=== PATIENT | female | born 1930 | race Hispanic/Latino ===

== ENCOUNTER 2018-10-14 17:33 | Inpatient (IN) | payer MEDICARE, OTHER ==
[~2018-10-14] VITALS: Ht 162.6 cm; Wt 41.1 kg
[2018-10-14 18:21] LABS: BASOPHILS % (AUTO) 0.2 % (0.0-5.0); EOSINOPHILS % (AUTO) 0.3 % (0.0-8.0); HEMATOCRIT 42.6 % (36-48); LYMPHOCYTES % (AUTO) 4.9 % (21.0-51.0); MEAN CORPUSCULAR HEMOGLOBIN 31.2 pg (27.0-33.0); MEAN CORPUSCULAR HGB CONC 32.7 g/dL (32.0-36.0); MEAN CORPUSCULAR VOLUME 95.5 fL (79-99); NEUTROPHILS % (AUTO) 87.6 % (40.0-77.0); PLATELET COUNT (AUTO) 175 K/uL (130-400); RED BLOOD CELL COUNT(AUTO) 4.47 MIL/uL (4.00-5.50); RED CELL DISTRIBUTION WIDTH 13.5 % (11.0-15.5); WHITE BLOOD COUNT (AUTO) 15.9 K/uL (4.8-10.8)
[2018-10-14 18:29] LABS: CREATININE 0.6 mg/dL (0.5-1.5); POTASSIUM 3.9 mmol/L (3.5-5.1)
[2018-10-14 18:34] LABS: ALBUMIN 3.1 g/dL (3.5-5.0); BILIRUBIN,TOTAL 0.9 mg/dL (0.2-1.0); TOTAL PROTEIN, SERUM 7.2 g/dL (6.0-8.3)
[2018-10-14 19:05] LABS: APPEARANCE,URINE CLOUDY (CLEAR); BILIRUBIN,URINE NEGATIVE (NEGATIVE); COLOR,URINE YELLOW (YELLOW); GLUCOSE, URINE (UA) NEGATIVE (NEGATIVE); KETONES,URINE 40 mg/dL (NEGATIVE); LEUKOCYTE ESTERASE ,URINE NEGATIVE (NEGATIVE); NITRATE,URINE NEGATIVE (NEGATIVE); OCCULT BLOOD,URINE SMALL (NEGATIVE); PROTEIN,URINE 100 (NEGATIVE)
[2018-10-14 19:16] LABS: BACTERIA,URINE Moderate /HPF (None Seen); RBC,URINE 0-1 /HPF (0-1); SQUAMOUS EPITHELIAL CELL,UR Few /HPF (0-2)
[2018-10-14] MEDS ORDERED: ASPIRIN 325 MG TABLET ONE (19:56)
[2018-10-14] MEDS ORDERED: ONDANSETRON HCL 4 MG/2 ML VIAL IV PRN (20:00)
[2018-10-14] MEDS ORDERED: ACETAMINOPHEN 325 MG TAB PO PRN (20:00)
[2018-10-14] MEDS ORDERED: MORPHINE SULFATE 4 MG/1ML SYG IV PRN (20:00)
[2018-10-14] MEDS ORDERED: NITROGLYCERIN 0.4 MG SL TAB SL PRN (20:00)
[2018-10-14] MEDS: ATORVASTATIN CALCIUM 40 MG TABLET PO SCH (21:00)
[2018-10-14] MEDS: METOPROLOL TARTRATE 25 MG TAB PO SCH (21:00)
[2018-10-14] MEDS: FAMOTIDINE/PF 20 MG/2 ML VIAL IV SCH (21:00)
[2018-10-14] MEDS ORDERED: ATORVASTATIN CALCIUM 20 MG TABLET ONE (21:32)
[2018-10-14] MEDS ORDERED: METOPROLOL TARTRATE 25 MG TAB ONE (21:33)
[2018-10-14] MEDS ORDERED: FAMOTIDINE 20MG TAB 20 MG TAB ONE (21:33)
[2018-10-14 22:00] VITALS: BP 152/64
[2018-10-15] VITALS (7 sets, daily range): BP systolic 116–137; BP diastolic 47–73
[2018-10-15] MEDS ORDERED: GLUCAGON 1MG KIT 1 MG ML IM PRN (05:15)
[2018-10-15] MEDS ORDERED: DEXTROSE 50%-WATER 50 ML DISP.SYRIN IV PRN (05:15)
[2018-10-15] MEDS: INSULIN HUMULIN R 100 UNIT/ML 3ML SQ SCH ×4 (06:22→20:34)
[2018-10-15] MEDS: METOPROLOL TARTRATE 25 MG TAB PO SCH ×2 (09:00→20:39)
[2018-10-15] MEDS ORDERED: ASPIRIN 325 MG TABLET PO SCH (09:00)
[2018-10-15] MEDS: FAMOTIDINE/PF 20 MG/2 ML VIAL IV SCH ×2 (10:02→20:39)
[2018-10-15 10:37] LABS: TROPONIN I 0.1 ng/mL (0.00-0.06)
--- NOTE | 2018-10-15 10:48 | NUR ---
CARDIAC PANEL RESULT MD made aware of cardiac panel results before leaving the floor.
--- NOTE | 2018-10-15 11:52 | NUR ---
[facility] CM met with pt unable to answer questions appropriately, called daughter Norma Calhoun [phone], no answer, left voicemail, pending to call back. Obtained info through med records. Pt is semi-ind, lives at home w/daughter, uses cane. Will reasses once family available. Dc plan to home vs SNF. CM to cont to follow up Addendum: 10/15/18 at 1153 by LYNDSEY SUNSHINE LVN CM Amended: Links added.
[2018-10-15] MEDS: CEFTRIAXONE SODIUM 1 GM IVP SCH (12:39)
[2018-10-15] MEDS: SODIUM CHLORIDE 0.9% 1000ML 1,000 ML IV SCH ×2 (17:36→22:09)
--- NOTE | 2018-10-15 17:36 | NUR ---
Nutrition intervention: Nutrition notification for poor appetite, weight loss and weakness. Pt with difficulty chewing meats, recommend finely chopped textures. Unintentional weight loss in the past 6 months, recommend nutrition supplementation TID. JOSELYN spoke with pt's sister at bedside. LBM 10/15. BMI 15.5. Alb 3.1. Addendum: 10/15/18 at [address] Amended: Links added.
[2018-10-15] MEDS: ATORVASTATIN CALCIUM 40 MG TABLET PO SCH ×2 (20:39→21:00)
[2018-10-16] VITALS (7 sets, daily range): BP systolic 127–139; BP diastolic 59–97
[2018-10-16] MEDS: CEFTRIAXONE SODIUM 1 GM IVP SCH (00:01)
[2018-10-16] MEDS ORDERED: LORAZEPAM 2 MG/ML 1 ML VIAL IVP PRN (00:15)
[2018-10-16] MEDS ORDERED: LORAZEPAM 2 MG/ML 1 ML VIAL ONE (00:16)
[2018-10-16] MEDS: SODIUM CHLORIDE 0.9% 1000ML 1,000 ML IV SCH (06:21)
[2018-10-16] MEDS: INSULIN HUMULIN R 100 UNIT/ML 3ML SQ SCH ×4 (06:38→20:08)
[2018-10-16 08:25] LABS: HEMATOCRIT 34.2 % (36-48); MEAN CORPUSCULAR HEMOGLOBIN 32.8 pg (27.0-33.0); MEAN CORPUSCULAR HGB CONC 34.5 g/dL (32.0-36.0); PLATELET COUNT (AUTO) 158 K/uL (130-400); RED CELL DISTRIBUTION WIDTH 13.6 % (11.0-15.5); WHITE BLOOD COUNT (AUTO) 10.2 K/uL (4.8-10.8)
[2018-10-16 08:40] LABS: CREATININE 0.5 mg/dL (0.5-1.5); HEMOGLOBIN A1C 6.8 % (4.0-6.0); MAGNESIUM 1.5 mg/dL (1.80-2.40); PHOSPHORUS 2.5 mg/dL (2.5-4.9); POTASSIUM 3.3 mmol/L (3.5-5.1)
[2018-10-16] MEDS: MEGESTROL 400 MG/10 ML UDCUP PO SCH (10:31)
[2018-10-16] MEDS: FAMOTIDINE/PF 20 MG/2 ML VIAL IV SCH ×2 (10:31→20:30)
[2018-10-16] MEDS: METOPROLOL TARTRATE 25 MG TAB PO SCH ×2 (10:31→20:30)
[2018-10-16] MEDS: ASPIRIN 81MG TAB.CHEW PO SCH (10:31)
[2018-10-16] MEDS: LINAGLIPTIN 5 MG TABLET PO SCH (10:31)
--- NOTE | 2018-10-16 16:03 | NUR ---
CM Note: [facility] pending acceptance CM met with pt and family, sister at bedside, daughter on the phone. Discussed regarding MD recommendation for temp placement rehab, sister and daughter agreeable, LAZARO signed for [facility]. Faxed order, clinicals, and pasrr. Spoke to Tiesha richards/[facility], will come eval pt, aware pending PT eval and treat, will fax notes as soon as available. Pt pending acceptance, will need to complete 3MN, ok to transfer tomorrow 10/17 once accepted, EMS form filled out pending to be faxed once pt ready. Primary nurse aware. CM to cont to follow up.
--- NOTE | 2018-10-16 16:51 | NUR ---
Nutrition Follow-up: Pt. on 60gm CCD Finely Chopped diet with Glucerna supp. TID. As per pt's son, pt. requested food around 12am-1am; states pt. ate well at this time. Pt's son states pt. was still feeling full when b'fast tray arrived due to having eaten earlier so pt. did not eat b'fast meal. Pt. with 25% p.o. intake of lunch, per EMR. As per pt's son, pt. drinking 50% of Glucerna supp. Pt's son requesting Apple juice with every meal for pt. due to pt. tolerates the juice well. Pt. on medication Megace for appetite. Labs reviewed(Alb 3.1). LBM: 10/15/18. SR-alvaro Caal. Recommendations: 1) Continue current diet and Glucerna supp. 2) Continue to monitor pt's nutritional status. 3) RD to follow-up in 3-5 days. Addendum: 10/16/18 at [address] Amended: Links added.
--- NOTE | 2018-10-16 19:17 | NUR ---
URINARY SAMPLE Two different nurses attempted two times to insert straight catheter to obtain urine sample unsuccessfully. Patient does not cooperate in the sense that she moves her arms, tenses her legs, refuses to open her perineal area, refuses to flex her legs at the knees and spread her legs. When patient is relaxed, her urethra is very easily visualized, but when she starts having her inner vulvar area cleaned, she tenses up this area of her body and obstructs visualization and reach of urethra. Urine sample for culture still pending.
[2018-10-16] MEDS: ATORVASTATIN CALCIUM 10 MG TABLET PO SCH (20:30)
--- NOTE | 2018-10-16 23:21 | NUR ---
Try to collect urine by straight cath. CECILIO Aguillon assist in the procedure. Patient urinate during the insertion, unable to collect in the collection container. Patient daughter in the room during the procedure and aware urine collection pending.
[2018-10-17] MEDS ORDERED: CEFTRIAXONE SODIUM 1 GM IVP SCH (00:15)
[2018-10-17] MEDS ORDERED: HYDR12.530 PO (02:00)
[2018-10-17] MEDS ORDERED: KETO.5OS OD (02:00)
[2018-10-17] MEDS ORDERED: LOVA10TA2 PO (02:00)
[2018-10-17] MEDS ORDERED: METF-444 PO (02:00)
[2018-10-17] MEDS ORDERED: ASPI-1197 PO (02:00)
[2018-10-17] MEDS ORDERED: MULT-1296 PO (02:00)
[2018-10-17] MEDS ORDERED: AMLO10TA7 PO (02:00)
[2018-10-17] MEDS ORDERED: LOSA100T58 PO (02:00)
[2018-10-17] MEDS ORDERED: CALC600T12 PO (02:00)
[2018-10-17] MEDS ORDERED: ALEN70TA10 PO (02:00)
[2018-10-17 03:26] VITALS: BP 111/52
[2018-10-17 04:44] LABS: MEAN CORPUSCULAR HEMOGLOBIN 31.7 pg (27.0-33.0); MEAN CORPUSCULAR HGB CONC 33.8 g/dL (32.0-36.0); MEAN CORPUSCULAR VOLUME 93.7 fL (79-99); NUCLEATED RED BLOOD CELLS 0.1 % (0.0-0.19); PLATELET COUNT (AUTO) 156 K/uL (130-400); RED BLOOD CELL COUNT(AUTO) 3.84 MIL/uL (4.00-5.50); RED CELL DISTRIBUTION WIDTH 13.7 % (11.0-15.5)
[2018-10-17 04:58] LABS: ALBUMIN 2.5 g/dL (3.5-5.0); BILIRUBIN,TOTAL 0.6 mg/dL (0.2-1.0); CREATININE 0.5 mg/dL (0.5-1.5); POTASSIUM 3.1 mmol/L (3.5-5.1); TOTAL PROTEIN, SERUM 5.8 g/dL (6.0-8.3)
[2018-10-17] MEDS: INSULIN HUMULIN R 100 UNIT/ML 3ML SQ SCH ×4 (06:12→21:15)
[2018-10-17 07:24] VITALS: BP_SYST 120; BP_SYST 134; BP_DIAS 70; BP_DIAS 76
[2018-10-17] MEDS: ASPIRIN 81MG TAB.CHEW PO SCH (11:40)
[2018-10-17] MEDS: LINAGLIPTIN 5 MG TABLET PO SCH (11:40)
[2018-10-17] MEDS: METOPROLOL TARTRATE 25 MG TAB PO SCH ×2 (11:40→21:14)
[2018-10-17] MEDS: MEGESTROL 400 MG/10 ML UDCUP PO SCH (11:40)
--- NOTE | 2018-10-17 11:45 | NUR ---
[facility]: Spoke susie Motley, she mentions that pt has been accepted to their facility for services and room is ready for her today. Primary nurse informed. Dr. Yee informed, states will most likely discharge pt tomorrow.
[2018-10-17 12:23] VITALS: BP 126/56
[2018-10-17] MEDS: NS-20 MEQ KCL 1000ML 1,000 ML IV SCH (13:10)
[2018-10-17] MEDS: POTASSIUM CHLORIDE 10% ELIXIR 20 MEQ/15 ML UDCUP PO SCH (13:11)
--- NOTE | 2018-10-17 13:32 | NUR ---
LETHARGY Patient received in a relaxe dstate this morning. NO agitation. No moving in bed. She advanced to lethargy. Nurse Practitioner started her on NS with 20mEq KCl at 50mL/hr, which was started and she is a lot more alert now. Also, all ehr medications that can cause lethargy were stopped by EDITOR PRODUCER. Patient also had replacement of potassium 3.1; had 40mEq of PO KCl elixir. Able to open her eyes on command, swallow on command and she also had a good appetite. She falls back to sleep but is easily arousable and seemed engaged with her environment and surroundings. Continues receiving IVFs as ordered.
[2018-10-17 15:40] VITALS: BP 114/63
[2018-10-17 19:15] VITALS: BP 106/50
[2018-10-17] MEDS: FAMOTIDINE 20MG TAB 20 MG TAB PO SCH (21:14)
[2018-10-17] MEDS: ATORVASTATIN CALCIUM 10 MG TABLET PO SCH (21:14)
[2018-10-17 23:00] VITALS: BP 113/57
[2018-10-18 03:00] VITALS: BP 117/59
[2018-10-18] MEDS: NS-20 MEQ KCL 1000ML 1,000 ML IV SCH (04:29)
[2018-10-18] MEDS: INSULIN HUMULIN R 100 UNIT/ML 3ML SQ SCH ×4 (06:22→22:01)
[2018-10-18 06:32] LABS: HEMATOCRIT 32.6 % (36-48); MEAN CORPUSCULAR HEMOGLOBIN 32.5 pg (27.0-33.0); MEAN CORPUSCULAR HGB CONC 34.1 g/dL (32.0-36.0); MEAN CORPUSCULAR VOLUME 95.2 fL (79-99); PLATELET COUNT (AUTO) 161 K/uL (130-400); RED BLOOD CELL COUNT(AUTO) 3.42 MIL/uL (4.00-5.50); RED CELL DISTRIBUTION WIDTH 13.9 % (11.0-15.5); WHITE BLOOD COUNT (AUTO) 15.4 K/uL (4.8-10.8)
[2018-10-18 06:49] LABS: CREATININE 0.5 mg/dL (0.5-1.5); POTASSIUM 4.2 mmol/L (3.5-5.1)
[2018-10-18 08:00] VITALS: BP 123/63
[2018-10-18] MEDS ORDERED: LEVOFLOXACIN 500 MG TABLET PO SCH (09:00)
[2018-10-18] MEDS ORDERED: CEFTRIAXONE SODIUM 500 MG VIAL IV SCH (09:00)
[2018-10-18] MEDS: MEROPENEM 500 MG VIAL IVP SCH ×2 (11:18→21:59)
[2018-10-18] MEDS: FAMOTIDINE 20MG TAB 20 MG TAB PO SCH ×3 (11:19→21:59)
[2018-10-18] MEDS: METOPROLOL TARTRATE 25 MG TAB PO SCH ×3 (11:19→21:59)
[2018-10-18] MEDS: ASPIRIN 81MG TAB.CHEW PO SCH (11:19)
[2018-10-18] MEDS: LINAGLIPTIN 5 MG TABLET PO SCH (11:19)
[2018-10-18] MEDS: MEGESTROL 400 MG/10 ML UDCUP PO SCH (11:19)
[2018-10-18] MEDS: POTASSIUM CHLORIDE 10% ELIXIR 20 MEQ/15 ML UDCUP PO SCH (12:00)
[2018-10-18 12:50] VITALS: BP 143/71
[2018-10-18 16:00] VITALS: BP 120/56
[2018-10-18 19:00] VITALS: BP 119/46
[2018-10-18] MEDS: ATORVASTATIN CALCIUM 10 MG TABLET PO SCH ×2 (21:00→21:59)
[2018-10-18 23:25] VITALS: BP 146/51
[2018-10-19 03:15] VITALS: BP 136/70
[2018-10-19 06:50] LABS: HEMATOCRIT 33.6 % (36-48); MEAN CORPUSCULAR HEMOGLOBIN 31.5 pg (27.0-33.0); MEAN CORPUSCULAR HGB CONC 33.5 g/dL (32.0-36.0); MEAN CORPUSCULAR VOLUME 94.1 fL (79-99); PLATELET COUNT (AUTO) 158 K/uL (130-400); RED BLOOD CELL COUNT(AUTO) 3.57 MIL/uL (4.00-5.50); RED CELL DISTRIBUTION WIDTH 13.9 % (11.0-15.5); WHITE BLOOD COUNT (AUTO) 19.4 K/uL (4.8-10.8)
[2018-10-19 07:30] VITALS: BP 132/68
[2018-10-19 10:09] LABS: CREATININE 0.5 mg/dL (0.5-1.5)
[2018-10-19] MEDS: FAMOTIDINE 20MG TAB 20 MG TAB PO SCH ×2 (10:19→22:58)
[2018-10-19] MEDS: LINAGLIPTIN 5 MG TABLET PO SCH (10:19)
[2018-10-19] MEDS: METOPROLOL TARTRATE 25 MG TAB PO SCH ×2 (10:19→22:59)
[2018-10-19] MEDS: ASPIRIN 81MG TAB.CHEW PO SCH (10:19)
[2018-10-19] MEDS: MEROPENEM 500 MG VIAL IVP SCH ×2 (10:20→22:59)
[2018-10-19 12:00] VITALS: BP 129/63
[2018-10-19] MEDS: POTASSIUM CHLORIDE 10% ELIXIR 20 MEQ/15 ML UDCUP PO SCH (12:00)
[2018-10-19] MEDS: INSULIN HUMULIN R 100 UNIT/ML 3ML SQ SCH ×3 (12:54→21:00)
[2018-10-19] MEDS ORDERED: VANCOMYCIN PROTOCOL PER PHARMACY IV SCH (15:45)
[2018-10-19 16:00] VITALS: BP 112/49
[2018-10-19] MEDS ORDERED: COMPOUND IV REFRIGERATED 1 EACH IVSOLN MISC PRN (16:00)
--- NOTE | 2018-10-19 17:00 | NUR ---
REFUSE TO HAVE HER SUGAR CHECK FOR NOW
[2018-10-19 19:00] VITALS: BP 134/64
[2018-10-19] MEDS: VANCOMYCIN 750MG + NS 250 ML IV SCH ×2 (22:58)
[2018-10-19] MEDS: OSELTAMIVIR PHOSPHATE 75 MG CAP PO SCH (22:58)
[2018-10-19] MEDS: ATORVASTATIN CALCIUM 10 MG TABLET PO SCH (22:58)
[2018-10-19 23:00] VITALS: BP 130/54
[2018-10-20 03:00] VITALS: BP 124/56
[2018-10-20 05:39] LABS: BASOPHILS % (AUTO) 0.2 % (0.0-5.0); EOSINOPHILS % (AUTO) 0.4 % (0.0-8.0); HEMATOCRIT 34.6 % (36-48); LYMPHOCYTES % (AUTO) 7.6 % (21.0-51.0); MEAN CORPUSCULAR HGB CONC 33.8 g/dL (32.0-36.0); MEAN CORPUSCULAR VOLUME 94.7 fL (79-99); MONOCYTES % (AUTO) 10.5 % (3.0-13.0); NEUTROPHILS % (AUTO) 81.3 % (40.0-77.0); PLATELET COUNT (AUTO) 192 K/uL (130-400); RED BLOOD CELL COUNT(AUTO) 3.66 MIL/uL (4.00-5.50); RED CELL DISTRIBUTION WIDTH 14.1 % (11.0-15.5); WHITE BLOOD COUNT (AUTO) 16.9 K/uL (4.8-10.8)
[2018-10-20 05:54] LABS: CREATININE 0.6 mg/dL (0.5-1.5); POTASSIUM 4.3 mmol/L (3.5-5.1)
[2018-10-20] MEDS: INSULIN HUMULIN R 100 UNIT/ML 3ML SQ SCH ×4 (06:34→21:00)
[2018-10-20 08:00] VITALS: BP 130/60
--- NOTE | 2018-10-20 08:00 | NUR ---
PT WITH HER EYES OPEN . REVIEW PLAN OF CARE. PT IS NOT ABLE TO FOCUSWITH SOME VERBAL COMMANDS. DAUGHTER AT THE BEDSIDE AND CRYING, DUE TO PT. MENTAL STATUS. AND UNABLE TO COPE WITH HER DIAGNOSIS CARE
[2018-10-20] MEDS: VANCOMYCIN 750MG + NS 250 ML IV SCH ×4 (09:00→23:58)
[2018-10-20] MEDS: FAMOTIDINE 20MG TAB 20 MG TAB PO SCH ×2 (09:01→23:56)
[2018-10-20] MEDS: METOPROLOL TARTRATE 25 MG TAB PO SCH ×2 (09:01→23:56)
[2018-10-20] MEDS: ASPIRIN 81MG TAB.CHEW PO SCH (09:02)
[2018-10-20] MEDS: MEROPENEM 500 MG VIAL IVP SCH ×2 (09:02→23:57)
[2018-10-20] MEDS: POTASSIUM CHLORIDE 10% ELIXIR 20 MEQ/15 ML UDCUP PO SCH (12:00)
[2018-10-20] MEDS: LINAGLIPTIN 5 MG TABLET PO SCH (12:11)
[2018-10-20 12:18] VITALS: BP 128/62
[2018-10-20 16:00] VITALS: BP 126/60
--- NOTE | 2018-10-20 16:02 | NUR ---
CM Note: [facility] acceptance Spoke to Tiesha richards/[facility] pt has acceptance, pasrr and updated clinicals received today. Pt pending PICC placement. As per Dr Holloway will discuss duration of abx iv tomorrow. Primary nurse aware. CM to cont to follow up.
[2018-10-20 16:28] LABS: INR 0.93 (0.85-1.15); PROTHROMBIN TIME 9.8 SEC (9.6-11.6)
--- NOTE | 2018-10-20 18:00 | NUR ---
VAHID MORALES AT THE BEDSIDE AND INSERTED A PICC LINE AND WAITING FOR X-RAY PLACEMENT . RIGHT PICC LINE DOUBLE LUMEN . DRSG DRY AND CLEAN.
[2018-10-20 20:00] VITALS: BP 115/55
[2018-10-20] MEDS: ATORVASTATIN CALCIUM 10 MG TABLET PO SCH (23:56)
[2018-10-20] MEDS: OSELTAMIVIR PHOSPHATE 75 MG CAP PO SCH (23:56)
[2018-10-21] VITALS: BP 128/67
[2018-10-21 04:00] VITALS: BP 130/64
[2018-10-21 05:31] LABS: BASOPHILS % (AUTO) 0.4 % (0.0-5.0); EOSINOPHILS % (AUTO) 0.8 % (0.0-8.0); HEMATOCRIT 33.2 % (36-48); LYMPHOCYTES % (AUTO) 11.6 % (21.0-51.0); MEAN CORPUSCULAR HEMOGLOBIN 31.1 pg (27.0-33.0); MEAN CORPUSCULAR HGB CONC 33.1 g/dL (32.0-36.0); MEAN CORPUSCULAR VOLUME 93.9 fL (79-99); NEUTROPHILS % (AUTO) 76.2 % (40.0-77.0); PLATELET COUNT (AUTO) 198 K/uL (130-400); RED BLOOD CELL COUNT(AUTO) 3.53 MIL/uL (4.00-5.50); WHITE BLOOD COUNT (AUTO) 11.7 K/uL (4.8-10.8)
[2018-10-21 05:39] LABS: CREATININE 0.6 mg/dL (0.5-1.5); POTASSIUM 4.5 mmol/L (3.5-5.1)
[2018-10-21] MEDS: INSULIN HUMULIN R 100 UNIT/ML 3ML SQ SCH ×2 (07:05→13:06)
[2018-10-21 08:11] VITALS: BP 129/63
[2018-10-21] MEDS ORDERED: LACTULOSE 20 GM/30 ML UDCUP PO PRN (09:15)
[2018-10-21] MEDS: LINAGLIPTIN 5 MG TABLET PO SCH (10:14)
[2018-10-21] MEDS: FAMOTIDINE 20MG TAB 20 MG TAB PO SCH (10:14)
[2018-10-21] MEDS: ASPIRIN 81MG TAB.CHEW PO SCH (10:14)
[2018-10-21] MEDS: MEROPENEM 500 MG VIAL IVP SCH (10:14)
[2018-10-21] MEDS: METOPROLOL TARTRATE 25 MG TAB PO SCH (10:14)
[2018-10-21] MEDS ORDERED: VANCOMYCIN 1.75 GM in SODIUM CHLORIDE 0.9% 250 ML IV SCH (10:30)
[2018-10-21] MEDS: VANCOMYCIN 750MG + NS 250 ML IV SCH ×2 (10:57)
[2018-10-21 12:29] VITALS: BP 113/74
[2018-10-21] MEDS: POTASSIUM CHLORIDE 10% ELIXIR 20 MEQ/15 ML UDCUP PO SCH (13:08)
--- NOTE | 2018-10-21 13:41 | NUR ---
RD Follow-Up Note Patient with good PO intake at 100%. Patient's daughter states that patient consumes nutritional supplement at 75% and eats well at mealtimes. Patient daughter did report that patient missed breakfast yesterday as she was asleep and disoriented the night before. Otherwise patient eating at 100%. Patient with no reported GI distress. Patient LBM 10/19/18. Patient monitored labs: Glu 136. RD to continue to monitor nutritional labs and PO intake. Please notify Rd as nutritional concerns arise. Thank you. Addendum: 10/21/18 at [address] Amended: Links added.
[2018-10-21] MEDS: OSELTAMIVIR PHOSPHATE 75 MG CAP PO SCH (15:21)
--- NOTE | 2018-10-21 15:57 | NUR ---
CM Note: [facility] acceptance, EMS arranged EM arranged and faxed, pending primary nurse to call [facility]. Pt has acceptance to [facility], updated clinicals and pasrr received. Primary nurse aware. CM to cont to follow up.
[2018-10-21 15:58] VITALS: BP 110/53
--- NOTE | 2018-10-21 20:43 | NUR ---
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
== END 2018-10-21 18:00 | DRG 871 ==
LOC: EDH 17:33 → OBSVTOIN 19:30 → EDHIP 19:30 → 3DH 10-15 01:14
PROVIDERS: ADMIT Internal Medicine; ATTEND Internal Medicine
PROC: 02HV33Z Insertion of Infusion Device into Superior Vena Cava, Percutaneous Approach (ICD-10-PCS; principal; 2018-10-20)
DX: A41.9 Sepsis, unspecified organism (principal); E43 Unspecified severe protein-calorie malnutrition; J18.9 Pneumonia, unspecified organism; N39.0 Urinary tract infection, site not specified; Z68.1 Body mass index [BMI] 19.9 or less, adult; I10 Essential (primary) hypertension; E78.2 Mixed hyperlipidemia; E11.9 Type 2 diabetes mellitus without complications; R74.8 Abnormal levels of other serum enzymes; E87.6 Hypokalemia; Z79.82 Long term (current) use of aspirin; Z79.899 Other long term (current) drug therapy; Z79.84 Long term (current) use of oral hypoglycemic drugs
CPT/HCPCS: 36415; 70450; 71045; 80048; 80053; 80202; 81001; 82550; 82948; 83036; 83735; 83874; 84100; 84484; 85025; 85027; 85610; 87040; 87088; 87804; 93005; 93306; 97039; A4218; A4344; C1894; G0378; J0696; J1815; J2060; J2185; J3370; J3480; J3490; J7030

== ENCOUNTER 2018-10-22 22:29 | Inpatient (IN) | payer MEDICARE, OTHER ==
[~2018-10-22 22:29] MED LIST: ALEN70TA10 PO; AMLO10TA7 PO; ASPI-1197 PO; CALC600T12 PO; HYDR12.530 PO; KETO.5OS OD; LOSA100T58 PO; LOVA10TA2 PO; METF-444 PO; MULT-1296 PO
[2018-10-22 23:15] LABS: BASOPHILS % (AUTO) 0.2 % (0.0-5.0); EOSINOPHILS % (AUTO) 0.6 % (0.0-8.0); HEMATOCRIT 36.1 % (36-48); LYMPHOCYTES % (AUTO) 7.6 % (21.0-51.0); MEAN CORPUSCULAR HEMOGLOBIN 31.7 pg (27.0-33.0); MEAN CORPUSCULAR HGB CONC 33.6 g/dL (32.0-36.0); MEAN CORPUSCULAR VOLUME 94.3 fL (79-99); MONOCYTES % (AUTO) 9.8 % (3.0-13.0); NEUTROPHILS % (AUTO) 81.8 % (40.0-77.0); PLATELET COUNT (AUTO) 294 K/uL (130-400); RED BLOOD CELL COUNT(AUTO) 3.83 MIL/uL (4.00-5.50); WHITE BLOOD COUNT (AUTO) 14.9 K/uL (4.8-10.8)
[2018-10-22 23:24] LABS: CREATININE 0.6 mg/dL (0.5-1.5); POTASSIUM 4.6 mmol/L (3.5-5.1)
[2018-10-22 23:28] LABS: ALBUMIN 2.4 g/dL (3.5-5.0); BILIRUBIN,TOTAL 0.4 mg/dL (0.2-1.0)
[2018-10-23 01:29] LABS: APPEARANCE,URINE Clear (CLEAR); BILIRUBIN,URINE Negative (NEGATIVE); COLOR,URINE Yellow (YELLOW); GLUCOSE, URINE (UA) 500 mg/dL (NEGATIVE); KETONES,URINE Negative (NEGATIVE); LEUKOCYTE ESTERASE ,URINE Negative (NEGATIVE); NITRATE,URINE Negative (NEGATIVE); OCCULT BLOOD,URINE Negative (NEGATIVE); PH,URINE 6.5 (5.0-8.0); PROTEIN,URINE POS 1+ (NEGATIVE)
[2018-10-23] MEDS ORDERED: DEXTROSE 50%-WATER 50 ML DISP.SYRIN IV PRN (01:30)
[2018-10-23] MEDS ORDERED: GLUCAGON 1MG KIT 1 MG ML IM PRN (01:30)
[2018-10-23 01:44] LABS: BACTERIA,URINE Few /HPF (None Seen); RBC,URINE None Seen /HPF (0-1); SQUAMOUS EPITHELIAL CELL,UR 0-2 /HPF (0-2); WBC,URINE None Seen /HPF (0-1); YEAST,URINE BUDDING Many /HPF (None Seen)
[2018-10-23] MEDS ORDERED: ACETAMINOPHEN 325 MG TAB PO PRN (01:45)
[2018-10-23] MEDS ORDERED: ONDANSETRON HCL 4 MG/2 ML VIAL IV PRN (01:45)
[2018-10-23] MEDS ORDERED: SODIUM CHLORIDE 0.9% 1000ML 1,000 ML IV ONE (02:10)
[2018-10-23] MEDS ORDERED: MAGNESIUM 2GM PREMIX 50ML 50 ML IV PRN (06:00)
[2018-10-23 06:35] LABS: BASOPHILS % (AUTO) 0.5 % (0.0-5.0); EOSINOPHILS % (AUTO) 1.3 % (0.0-8.0); LYMPHOCYTES % (AUTO) 10.4 % (21.0-51.0); MEAN CORPUSCULAR HGB CONC 32.9 g/dL (32.0-36.0); MEAN CORPUSCULAR VOLUME 94.1 fL (79-99); MONOCYTES % (AUTO) 10.8 % (3.0-13.0); PLATELET COUNT (AUTO) 262 K/uL (130-400); RED BLOOD CELL COUNT(AUTO) 3.71 MIL/uL (4.00-5.50); WHITE BLOOD COUNT (AUTO) 12.2 K/uL (4.8-10.8)
[2018-10-23 06:52] LABS: ALBUMIN 2.2 g/dL (3.5-5.0); BILIRUBIN,TOTAL 0.6 mg/dL (0.2-1.0); CREATININE 0.5 mg/dL (0.5-1.5); INR 0.95 (0.85-1.15); MAGNESIUM 2.2 mg/dL (1.80-2.40); POTASSIUM 4.3 mmol/L (3.5-5.1); TOTAL PROTEIN, SERUM 6.5 g/dL (6.0-8.3)
[2018-10-23] MEDS: INSULIN HUMULIN R 100 UNIT/ML 3ML SQ SCH ×4 (07:30→20:21)
[2018-10-23 08:00] VITALS: BP 124/57
[2018-10-23] MEDS: SODIUM CHLORIDE 0.9% 1000ML 1,000 ML IV SCH ×2 (08:31→21:52)
[2018-10-23] MEDS ORDERED: MERO500V IV (08:38)
[2018-10-23] MEDS ORDERED: VANC750P8 IV (08:39)
[2018-10-23] MEDS: ENOXAPARIN SODIUM 30 MG/0.3 ML SQ SCH (08:42)
[2018-10-23] MEDS: PANTOPRAZOLE SODIUM 40 MG TABLET.DR PO SCH (09:00)
[2018-10-23] MEDS: FLUCONAZOLE 200 MG/NS 100 ML 100 ML IV SCH (12:23)
[2018-10-23] MEDS ORDERED: VANCOMYCIN HCL IN DEXTROSE IV SCH (13:30)
[2018-10-23] MEDS ORDERED: MEROPENEM 500 MG IV SCH (13:30)
[2018-10-23] MEDS ORDERED: [UNRECOGNIZED DRUG - OTHER] IV SCH (13:30)
[2018-10-23] MEDS ORDERED: COMPOUND IV REFRIGERATED 1 EACH IVSOLN MISC PRN (15:45)
[2018-10-23 16:00] VITALS: BP 141/61
[2018-10-23] MEDS: MEROPENEM 500 MG VIAL IVP SCH (16:37)
[2018-10-23] MEDS: VANCOMYCIN 750MG + NS 250 ML IV SCH ×2 (16:38)
[2018-10-23 20:00] VITALS: BP 125/57
[2018-10-24] VITALS: BP 131/57
[2018-10-24] MEDS: MEROPENEM 500 MG VIAL IVP SCH ×2 (03:17→15:47)
[2018-10-24 04:00] VITALS: BP 141/55
[2018-10-24] MEDS: VANCOMYCIN 750MG + NS 250 ML IV SCH ×4 (04:22→15:46)
[2018-10-24 04:42] LABS: BASOPHILS % (AUTO) 0.3 % (0.0-5.0); EOSINOPHILS % (AUTO) 1.3 % (0.0-8.0); HEMATOCRIT 28.4 % (36-48); LYMPHOCYTES % (AUTO) 14.3 % (21.0-51.0); MEAN CORPUSCULAR HEMOGLOBIN 32.6 pg (27.0-33.0); MEAN CORPUSCULAR HGB CONC 34.7 g/dL (32.0-36.0); MEAN CORPUSCULAR VOLUME 93.8 fL (79-99); MONOCYTES % (AUTO) 9.7 % (3.0-13.0); NEUTROPHILS % (AUTO) 74.4 % (40.0-77.0); PLATELET COUNT (AUTO) 244 K/uL (130-400); RED BLOOD CELL COUNT(AUTO) 3.03 MIL/uL (4.00-5.50); WHITE BLOOD COUNT (AUTO) 10.2 K/uL (4.8-10.8)
[2018-10-24 04:49] LABS: CREATININE 0.4 mg/dL (0.5-1.5); MAGNESIUM 1.9 mg/dL (1.80-2.40); POTASSIUM 3.8 mmol/L (3.5-5.1)
[2018-10-24] MEDS: SODIUM CHLORIDE 0.9% 1000ML 1,000 ML IV SCH (05:01)
[2018-10-24] MEDS: INSULIN HUMULIN R 100 UNIT/ML 3ML SQ SCH ×3 (06:23→16:30)
[2018-10-24 08:00] VITALS: BP_SYST 123; BP_SYST 131; BP_DIAS 53; BP_DIAS 68
[2018-10-24 08:01] VITALS: BP 135/61
[2018-10-24] MEDS: PANTOPRAZOLE SODIUM 40 MG TABLET.DR PO SCH (09:00)
[2018-10-24] MEDS: FLUCONAZOLE 200 MG/NS 100 ML 100 ML IV SCH (09:00)
[2018-10-24] MEDS: ENOXAPARIN SODIUM 30 MG/0.3 ML SQ SCH (09:01)
[2018-10-24 11:00] VITALS: BP 128/62
--- NOTE | 2018-10-24 14:16 | NUR ---
Nutrition Screen: Dietitian consult requested for pt due to BMI. Pt will be discharged back to [facility] today as per family. Pt sleeping at time of visit. Pt is on a heart healthy diet/finely chop meats. Pt with hx of dementia. Pt will need no further nutrition intervention at this time.
[2018-10-24 16:00] VITALS: BP 123/66
--- NOTE | 2018-10-24 16:00 | NUR ---
INITIAL: Met with pt and family this afternoon to discuss dcp. Pt is an admit from [facility] and plan is for return [place]. Previously pt lived w disabled son. She uses a cane for ambulation and required assistance w ADLs. Pt sister Loni provided information, states Dtr is POA but has gone back to [facility]. Addendum: 10/24/18 at 1628 by RALPH BOWERS CM Amended: Links added.
--- NOTE | 2018-10-24 18:26 | NUR ---
Called report to GHAZALA Flynn at [facility], called for EMS transport.
== END 2018-10-24 20:15 | DRG 70 ==
LOC: EDH 22:29 → EDHIP 10-23 01:31 → 4CH 10-23 07:49
PROVIDERS: ADMIT Internal Medicine; ATTEND Internal Medicine
PROC: 02HV33Z Insertion of Infusion Device into Superior Vena Cava, Percutaneous Approach (ICD-10-PCS; principal; 2018-10-23)
DX: G93.41 Metabolic encephalopathy (principal); J18.9 Pneumonia, unspecified organism; E44.0 Moderate protein-calorie malnutrition; Z68.1 Body mass index [BMI] 19.9 or less, adult; I10 Essential (primary) hypertension; E11.9 Type 2 diabetes mellitus without complications; E78.5 Hyperlipidemia, unspecified; I49.3 Ventricular premature depolarization; K72.90 Hepatic failure, unspecified without coma; F03.90 Unspecified dementia, unspecified severity, without behavioral disturbance, psychotic disturbance, mood disturbance, and anxiety; R53.81 Other malaise; F19.90 Other psychoactive substance use, unspecified, uncomplicated; R91.8 Other nonspecific abnormal finding of lung field; Z87.440 Personal history of urinary (tract) infections; Z87.01 Personal history of pneumonia (recurrent); Z79.2 Long term (current) use of antibiotics
CPT/HCPCS: 36415; 71045; 80048; 80053; 81001; 82140; 82948; 83690; 83735; 85025; 85610; 85730; 87040; 87088; 93005; A4218; C1894; G0378; J1450; J1650; J1815; J2185; J3370; J3475; J7030

== ENCOUNTER 2019-11-17 16:29 | Observation (INO) | payer MEDICARE ==
[~2019-11-17] VITALS: Ht 157.5 cm; Wt 53.1 kg
[~2019-11-17 16:29] MED LIST changes: +MERO500V IV; +VANC750P8 IV
[2019-11-17 17:51] LABS: BASOPHILS % (AUTO) 0.5 % (0.0-5.0); EOSINOPHILS % (AUTO) 1.6 % (0.0-8.0); HEMATOCRIT 36.9 % (36-48); LYMPHOCYTES % (AUTO) 18.2 % (21.0-51.0); MEAN CORPUSCULAR HEMOGLOBIN 29.8 pg (27.0-33.0); MEAN CORPUSCULAR HGB CONC 33.3 g/dL (32.0-36.0); MEAN CORPUSCULAR VOLUME 89.3 fL (79-99); MONOCYTES % (AUTO) 11.1 % (3.0-13.0); NEUTROPHILS % (AUTO) 68.2 % (40.0-77.0); PLATELET COUNT (AUTO) 254 K/uL (130-400); RED BLOOD CELL COUNT(AUTO) 4.13 MIL/uL (4.00-5.50); RED CELL DISTRIBUTION WIDTH 13.5 % (11.0-15.5); WHITE BLOOD COUNT (AUTO) 8.6 K/uL (4.8-10.8)
[2019-11-17 18:01] LABS: CREATININE 0.7 mg/dL (0.5-1.5); INR 0.95 (0.85-1.15); PARTIAL THROMBOPLASTIN TIME 26.8 SEC (26.3-35.5); POTASSIUM 3.9 mmol/L (3.5-5.1)
[2019-11-17 18:07] LABS: ALBUMIN 3.4 g/dL (3.5-5.0); BILIRUBIN,TOTAL 0.3 mg/dL (0.2-1.0); TOTAL PROTEIN, SERUM 7.4 g/dL (6.0-8.3)
[2019-11-17 18:16] LABS: B-TYPE NATRIURETIC PEPTIDE 18 pg/mL (0-100)
[2019-11-17] MEDS ORDERED: ACETAMINOPHEN 325 MG TAB PO PRN (19:15)
[2019-11-17] MEDS ORDERED: ONDANSETRON HCL 4 MG/2 ML VIAL IVP PRN (19:15)
[2019-11-17 20:01] LABS: APPEARANCE,URINE Clear (CLEAR); BILIRUBIN,URINE Negative (NEGATIVE); COLOR,URINE Yellow (YELLOW); GLUCOSE, URINE (UA) Negative (NEGATIVE); KETONES,URINE Negative (NEGATIVE); LEUKOCYTE ESTERASE ,URINE Negative (NEGATIVE); NITRATE,URINE Negative (NEGATIVE); OCCULT BLOOD,URINE Negative (NEGATIVE); PROTEIN,URINE Negative (NEGATIVE); UROBILINOGEN,URINE 0.2 mg/dL (0.2-1.0)
[2019-11-17] MEDS ORDERED: DEXTROSE 5 %-0.45 % NACL 1,000 ML IV ONE (20:05)
[2019-11-17] MEDS ORDERED: ZOSYN 3.375GM+NS 50ML 50 ML IV ONE (20:05)
[2019-11-17] MEDS: ZOSYN 3.375GM+NS 50ML 50 ML IV SCH (21:00)
[2019-11-17] MEDS ORDERED: INSULIN HUMULIN R 100 UNIT/ML 3ML ONE (21:38)
[2019-11-17 22:45] VITALS: BP 98/57
[2019-11-18] MEDS: DEXTROSE 5 %-0.45 % NACL 1,000 ML IV SCH ×4 (03:15→19:15)
[2019-11-18 04:00] VITALS: BP 111/58
[2019-11-18 05:23] LABS: HEMATOCRIT 34.3 % (36-48); MEAN CORPUSCULAR HEMOGLOBIN 29.5 pg (27.0-33.0); MEAN CORPUSCULAR HGB CONC 33.2 g/dL (32.0-36.0); MEAN CORPUSCULAR VOLUME 88.6 fL (79-99); PLATELET COUNT (AUTO) 250 K/uL (130-400); RED BLOOD CELL COUNT(AUTO) 3.87 MIL/uL (4.00-5.50); RED CELL DISTRIBUTION WIDTH 13.6 % (11.0-15.5); WHITE BLOOD COUNT (AUTO) 9.6 K/uL (4.8-10.8)
[2019-11-18 06:03] LABS: ALBUMIN 3.1 g/dL (3.5-5.0); BILIRUBIN,TOTAL 0.4 mg/dL (0.2-1.0); CREATININE 0.7 mg/dL (0.5-1.5); POTASSIUM 3.7 mmol/L (3.5-5.1); TOTAL PROTEIN, SERUM 6.6 g/dL (6.0-8.3)
[2019-11-18] MEDS: ZOSYN 3.375GM+NS 50ML 50 ML IV SCH ×3 (06:14→21:05)
[2019-11-18 07:30] VITALS: BP 107/58
[2019-11-18] MEDS: FAMOTIDINE/PF 20 MG/2 ML VIAL IV SCH (08:15)
[2019-11-18] MEDS: ENOXAPARIN SODIUM 40 MG/0.4 ML SYRINGE SQ SCH (08:16)
[2019-11-18 11:00] VITALS: BP 113/56
[2019-11-18] MEDS: INSULIN HUMULIN R 100 UNIT/ML 3ML SQ SCH ×3 (12:10→21:00)
--- NOTE | 2019-11-18 13:15 | NUR ---
ADVISED THAT DR. DAI IS GIVING ORDER FOR OBS STATUS ONLY MAL[facility]KA WANTS PATIENT TO SEND PT BACK IN AM. URINE NO GROWTH. PT ADMITTED LAST NIGHT [id number]
--- NOTE | 2019-11-18 13:59 | NUR ---
INITIAL SW spoke to patient's daughter, Norma Calhoun, . Daughter provided verbal consent for patient to return to [facility]. LAZARO/Choice completed and placed in chart. SW contacted Meenu Epstein with [facility] and she stated that patient is able to return once discharged from hospital. DCP is to halfway.
[2019-11-18 15:30] VITALS: BP 113/56
[2019-11-18 19:50] VITALS: BP 120/67
[2019-11-18] MEDS ORDERED: 1/2 NORMAL SALINE 1,000 ML IV ONE (21:14)
[2019-11-18] MEDS: 1/2 NORMAL SALINE 1,000 ML IV SCH (22:10)
[2019-11-18 23:39] VITALS: BP 121/60
[2019-11-19 04:23] VITALS: BP 123/61
--- NOTE | 2019-11-19 04:53 | NUR ---
PATIENT UPDATE Pt more calm and relaxed overnight, no longer making attempts to pull piv out but continues to take off the compliance monitor and leaves it at the bedside table, Vital signs stable, reported eating adequately with the main meals. Blood sugar at hs at 284, pt on d5 1/2 ns at125 cc/hr. IVF switched to plain 1/2 NS at the same rate. Slept well overnight. Pending discharge back to [facility] home today as planned by MD. No complaints of any discomfort , not in any form of distress.
[2019-11-19] MEDS: ZOSYN 3.375GM+NS 50ML 50 ML IV SCH ×2 (05:05→12:54)
[2019-11-19] MEDS: 1/2 NORMAL SALINE 1,000 ML IV SCH (05:16)
[2019-11-19] MEDS: INSULIN HUMULIN R 100 UNIT/ML 3ML SQ SCH ×2 (06:44→12:57)
[2019-11-19 06:45] LABS: HEMATOCRIT 33.8 % (36-48); MEAN CORPUSCULAR HEMOGLOBIN 29.7 pg (27.0-33.0); MEAN CORPUSCULAR HGB CONC 33.1 g/dL (32.0-36.0); MEAN CORPUSCULAR VOLUME 89.7 fL (79-99); PLATELET COUNT (AUTO) 242 K/uL (130-400); RED BLOOD CELL COUNT(AUTO) 3.77 MIL/uL (4.00-5.50); RED CELL DISTRIBUTION WIDTH 13.5 % (11.0-15.5); WHITE BLOOD COUNT (AUTO) 9.4 K/uL (4.8-10.8)
[2019-11-19 06:52] LABS: ALANINE AMINOTRANSFERASE 16 U/L (12-78); ALBUMIN 2.8 g/dL (3.5-5.0); BILIRUBIN,TOTAL 0.4 mg/dL (0.2-1.0); CARBON DIOXIDE 27 mmol/L (21-32); CHLORIDE 104 mmol/L (101-111); CREATININE 0.7 mg/dL (0.5-1.5); GLOMERULAR FILTR. RATE CALC 84 mL/min (>60); POTASSIUM 3.7 mmol/L (3.5-5.1); SODIUM SERUM 139 mmol/L (136-145); TOTAL PROTEIN, SERUM 6.2 g/dL (6.0-8.3); UREA NITROGEN, BLOOD 10 mg/dL (7-18)
[2019-11-19 07:00] VITALS: BP 121/65
[2019-11-19 07:12] LABS: ASPARTATE AMINOTRANSFERASE 12 U/L (10-37)
[2019-11-19 07:14] LABS: AMMONIA < 3 umol/L (11-32)
[2019-11-19 07:19] LABS: GLUCOSE,RANDOM 141 mg/dL (70-105)
[2019-11-19 11:00] VITALS: BP 118/61
[2019-11-19] MEDS: ENOXAPARIN SODIUM 40 MG/0.4 ML SYRINGE SQ SCH (12:55)
[2019-11-19] MEDS: FAMOTIDINE/PF 20 MG/2 ML VIAL IV SCH (12:56)
--- NOTE | 2019-11-19 16:16 | NUR ---
1245 went into patient's room to have KHOURY Letter signed, she stated her niece is the one that signs paper work. Niece was not in the room at this time. I was unable to get KHOURY Letter signed, I will notify weekend Uniform Attendant and Financial counselors.
== END 2019-11-19 18:30 ==
LOC: EDH 16:29 → INTOOBSV 18:30 → EDHIP 18:30 → 3BH 21:30 → 3CH 23:17
PROVIDERS: ADMIT Internal Medicine; ATTEND Internal Medicine
DX: E86.0 Dehydration (principal); I10 Essential (primary) hypertension; E78.5 Hyperlipidemia, unspecified; K21.9 Gastro-esophageal reflux disease without esophagitis; E78.00 Pure hypercholesterolemia, unspecified; E11.65 Type 2 diabetes mellitus with hyperglycemia; Z16.24 Resistance to multiple antibiotics; Z87.440 Personal history of urinary (tract) infections
CPT/HCPCS: 36415 ×3; 70450; 71045; 80053 ×3; 81003; 82140; 82550; 82948 ×6; 83605 ×2; 83880; 84484; 85025; 85027 ×2; 85610; 85730; 87040 ×2; 87088; 87804 ×2; 93005; 96361 ×2; 96365; 96366 ×2; 96372 ×2; 96375; 96376; 99285; G0378 ×7; J1650 ×2; J1815 ×3; J2543 ×6; J3490 ×2; J7042 ×2

== ENCOUNTER 2020-09-30 23:21 | Inpatient (IN) | payer MEDICARE ==
[~2020-09-30] VITALS: Ht 165.1 cm; Wt 47.7 kg
[~2020-09-30 23:21] MED LIST changes: -ALEN70TA10 PO; +ALEN70TA80 PO; +AMLO-258 PO; -AMLO10TA7 PO; +CALC-1125 PO; -CALC600T12 PO; -MERO500V IV; -VANC750P8 IV
[2020-09-30 23:44] LABS: BASOPHILS % (AUTO) 0.3 % (0.0-5.0); EOSINOPHILS % (AUTO) 0.2 % (0.0-8.0); HEMATOCRIT 37.5 % (36-48); LYMPHOCYTES % (AUTO) 5.5 % (21.0-51.0); MEAN CORPUSCULAR HEMOGLOBIN 30.9 pg (27.0-33.0); MEAN CORPUSCULAR HGB CONC 32.5 g/dL (32.0-36.0); MEAN CORPUSCULAR VOLUME 94.9 fL (79-99); MONOCYTES % (AUTO) 7.2 % (3.0-13.0); NEUTROPHILS % (AUTO) 85.5 % (40.0-77.0); PLATELET COUNT (AUTO) 383 K/uL (130-400); RED BLOOD CELL COUNT(AUTO) 3.95 MIL/uL (4.00-5.50); RED CELL DISTRIBUTION WIDTH 14.1 % (11.0-15.5); WHITE BLOOD COUNT (AUTO) 25.6 K/uL (4.8-10.8)
[2020-09-30 23:45] LABS: APPEARANCE,URINE Turbid (CLEAR); BILIRUBIN,URINE Negative (NEGATIVE); COLOR,URINE Yellow (YELLOW); GLUCOSE, URINE (UA) Negative (NEGATIVE); KETONES,URINE Negative (NEGATIVE); LEUKOCYTE ESTERASE ,URINE Moderate (NEGATIVE); NITRATE,URINE Negative (NEGATIVE); OCCULT BLOOD,URINE Small (NEGATIVE); PROTEIN,URINE POS 1+ mg/dL (NEGATIVE)
[2020-09-30 23:52] LABS: BACTERIA,URINE Moderate /HPF (None Seen); RBC,URINE None Seen /HPF (0-1); YEAST,URINE BUDDING Many /HPF (None Seen)
[2020-10-01 00:06] LABS: CARBON DIOXIDE 30 mmol/L (21-32); CHLORIDE 110 mmol/L (101-111); CREATININE 0.8 mg/dL (0.5-1.5); GLOMERULAR FILTR. RATE CALC 72 mL/min (>60); GLUCOSE,RANDOM 209 mg/dL (70-105); POTASSIUM 3.5 mmol/L (3.5-5.1); SODIUM SERUM 151 mmol/L (136-145); UREA NITROGEN, BLOOD 39 mg/dL (7-18)
[2020-10-01 00:09] LABS: INR 1.06 (0.85-1.15); PROTHROMBIN TIME 11.3 SEC (9.6-11.6)
[2020-10-01 00:10] LABS: PARTIAL THROMBOPLASTIN TIME 23.7 SEC (26.3-35.5)
[2020-10-01] MEDS ORDERED: ZOSYN 3.375GM+NS 50ML 50 ML IV ONE ×2 (00:12→07:40)
[2020-10-01 00:28] LABS: ALANINE AMINOTRANSFERASE 36 U/L (12-78); ALBUMIN 2.5 g/dL (3.5-5.0); AMYLASE 56 U/L (25-115); ASPARTATE AMINOTRANSFERASE 20 U/L (10-37); BILIRUBIN,TOTAL 0.5 mg/dL (0.2-1.0); CREATINE KINASE, TOTAL 301 U/L (21-232); LIPASE 58 U/L (114-286); MYOGLOBIN 358 ng/mL (10-92); TOTAL PROTEIN, SERUM 7.5 g/dL (6.0-8.3); TROPONIN I < 0.04 ng/mL (0.00-0.06)
[2020-10-01] MEDS ORDERED: VANCOMYCIN 1G/250ML KIT 250 ML IV SCH (02:00)
[2020-10-01] MEDS ORDERED: BISACODYL 10 MG SUPP.RECT RC ONE ×2 (02:00→02:43)
[2020-10-01] MEDS ORDERED: VANCOMYCIN PROTOCOL PER PHARMACY IV SCH ×2 (02:00→03:00)
[2020-10-01] MEDS: ZOSYN 3.375GM+NS 50ML 50 ML IV SCH ×3 (02:00→18:47)
[2020-10-01] MEDS ORDERED: DiphenhydrAMINE HCL 50 MG/ML VIAL IV PRN (02:15)
[2020-10-01] MEDS ORDERED: ONDANSETRON 4MG INJ IV PRN (02:15)
[2020-10-01] MEDS: LACTATED RINGERS 1000ML 1,000 ML IV SCH ×2 (02:15→16:42)
[2020-10-01 02:19] LABS: HEMOGLOBIN A1C 7.8 % (4.0-6.0)
[2020-10-01] MEDS ORDERED: VANCOMYCIN 1G/250ML KIT 250 ML IV ONE (02:43)
[2020-10-01] MEDS ORDERED: PHARMACY COMMUNICATION MISC SCH (03:00)
[2020-10-01] MEDS ORDERED: LACTATED RINGERS 1000ML 1,000 ML IV ONE (03:28)
[2020-10-01] MEDS: INSULIN HUMULIN R 100 UNIT/ML 3ML SQ SCH ×3 (06:00→18:00)
[2020-10-01 07:07] LABS: CREATININE 0.8 mg/dL (0.5-1.5); POTASSIUM 3.8 mmol/L (3.5-5.1)
[2020-10-01] MEDS: FAMOTIDINE 20MG VIAL IV SCH ×2 (09:00→20:30)
[2020-10-01] MEDS: VANCOMYCIN 1G/250ML KIT 250 ML IV SCH (09:00)
[2020-10-01] MEDS: HEPARIN 5,000 UNIT VIAL SQ SCH ×2 (09:00→20:39)
[2020-10-01] MEDS ORDERED: HEPARIN 5,000 UNIT VIAL ONE (09:24)
[2020-10-01] MEDS ORDERED: INSULIN HUMULIN R 100 UNIT/ML 3ML ONE (09:25)
[2020-10-01] MEDS ORDERED: FAMOTIDINE 20MG VIAL IV ONE (09:25)
[2020-10-01 11:50] VITALS: BP 134/45
[2020-10-01] MEDS: LOVASTATIN 10 MG PO SCH (16:42)
[2020-10-01 16:57] VITALS: BP 111/51
[2020-10-01] MEDS ORDERED: 0.9%NACL 50ML 50 ML IV ONE (18:46)
[2020-10-01 20:20] VITALS: BP 120/68
[2020-10-01] MEDS: CALCIUM CARB 500MG PO SCH (20:30)
[2020-10-01] MEDS: KETOROLAC OPTH 0.5% 5ML DROPS OD SCH (20:31)
[2020-10-01 23:26] VITALS: BP 122/65
[2020-10-02] MEDS: ZOSYN 3.375GM+NS 50ML 50 ML IV SCH ×3 (03:11→17:30)
[2020-10-02 04:17] VITALS: BP 139/75
[2020-10-02 05:28] LABS: BASOPHILS % (AUTO) 0.2 % (0.0-5.0); EOSINOPHILS % (AUTO) 0.1 % (0.0-8.0); LYMPHOCYTES % (AUTO) 8.2 % (21.0-51.0); MEAN CORPUSCULAR HEMOGLOBIN 30.6 pg (27.0-33.0); MEAN CORPUSCULAR HGB CONC 31.4 g/dL (32.0-36.0); MEAN CORPUSCULAR VOLUME 97.5 fL (79-99); MONOCYTES % (AUTO) 6.9 % (3.0-13.0); NEUTROPHILS % (AUTO) 83.7 % (40.0-77.0); PLATELET COUNT (AUTO) 295 K/uL (130-400); RED BLOOD CELL COUNT(AUTO) 3.59 MIL/uL (4.00-5.50); RED CELL DISTRIBUTION WIDTH 14.1 % (11.0-15.5); WHITE BLOOD COUNT (AUTO) 15.1 K/uL (4.8-10.8)
[2020-10-02] MEDS: LACTATED RINGERS 1000ML 1,000 ML IV SCH (05:43)
[2020-10-02] MEDS: INSULIN HUMULIN R 100 UNIT/ML 3ML SQ SCH ×4 (06:00→21:00)
[2020-10-02 06:02] LABS: CARBON DIOXIDE 30 mmol/L (21-32); CREATININE 0.8 mg/dL (0.5-1.5); GLOMERULAR FILTR. RATE CALC 72 mL/min (>60); GLUCOSE,RANDOM 194 mg/dL (70-105); PHOSPHORUS 3.4 mg/dL (2.5-4.9); POTASSIUM 3.1 mmol/L (3.5-5.1); UREA NITROGEN, BLOOD 24 mg/dL (7-18)
[2020-10-02 06:40] LABS: CHLORIDE 120 mmol/L (101-111); SODIUM SERUM 160 mmol/L (136-145)
[2020-10-02 08:00] VITALS: BP 138/77
[2020-10-02] MEDS: CALCIUM CARB 500MG PO SCH ×2 (09:32→22:50)
[2020-10-02] MEDS: VANCOMYCIN 1G/250ML KIT 250 ML IV SCH (09:32)
[2020-10-02] MEDS: ASPIRIN 81MG CHEW TAB PO SCH (09:33)
[2020-10-02] MEDS: HYDROCHLOROTHIAZIDE 25 MG TABLET PO SCH (09:33)
[2020-10-02] MEDS: AMLODIPINE 5 MG TAB PO SCH (09:33)
[2020-10-02] MEDS: MULTIVITAMIN TABLET PO SCH (09:34)
[2020-10-02] MEDS: FAMOTIDINE 20MG VIAL IV SCH ×2 (09:34→22:49)
[2020-10-02] MEDS: LOSARTAN 100 MG TABLET PO SCH (09:34)
[2020-10-02] MEDS: KETOROLAC OPTH 0.5% 5ML DROPS OD SCH ×2 (09:34→22:53)
[2020-10-02] MEDS: HEPARIN 5,000 UNIT VIAL SQ SCH ×2 (09:41→22:49)
[2020-10-02] MEDS: DEXTROSE 5%-WATER 1,000 ML IV SCH ×2 (09:43→22:44)
[2020-10-02 12:00] VITALS: BP 147/76
[2020-10-02 16:00] VITALS: BP 133/63
[2020-10-02] MEDS: LOVASTATIN 10 MG PO SCH (16:48)
[2020-10-02 20:17] VITALS: BP 133/70
[2020-10-02 23:37] VITALS: BP 122/56
[2020-10-03] MEDS: ZOSYN 3.375GM+NS 50ML 50 ML IV SCH ×3 (03:14→17:46)
[2020-10-03 03:40] VITALS: BP 113/52
[2020-10-03 05:21] LABS: HEMATOCRIT 35.8 % (36-48); MEAN CORPUSCULAR HEMOGLOBIN 30.4 pg (27.0-33.0); MEAN CORPUSCULAR HGB CONC 31.3 g/dL (32.0-36.0); MEAN CORPUSCULAR VOLUME 97.3 fL (79-99); RED BLOOD CELL COUNT(AUTO) 3.68 MIL/uL (4.00-5.50); WHITE BLOOD COUNT (AUTO) 14.6 K/uL (4.8-10.8)
[2020-10-03 05:43] LABS: CREATININE 0.9 mg/dL (0.5-1.5)
[2020-10-03 05:52] LABS: POTASSIUM 2.9 mmol/L (3.5-5.1)
[2020-10-03] MEDS: INSULIN HUMULIN R 100 UNIT/ML 3ML SQ SCH ×4 (06:34→20:58)
[2020-10-03 08:49] VITALS: BP_SYST 114; BP_SYST 115; BP_DIAS 70; BP_DIAS 74
[2020-10-03] MEDS: FAMOTIDINE 20MG VIAL IV SCH ×2 (10:35→20:55)
[2020-10-03] MEDS: AMLODIPINE 5 MG TAB PO SCH (10:35)
[2020-10-03] MEDS: CALCIUM CARB 500MG PO SCH ×2 (10:36→20:13)
[2020-10-03] MEDS: MULTIVITAMIN TABLET PO SCH (10:36)
[2020-10-03] MEDS: ASPIRIN 81MG CHEW TAB PO SCH (10:36)
[2020-10-03] MEDS: HYDROCHLOROTHIAZIDE 25 MG TABLET PO SCH (10:36)
[2020-10-03] MEDS: LOSARTAN 100 MG TABLET PO SCH (10:36)
[2020-10-03] MEDS ORDERED: LIDOCAINE HCL-MPF 1% 2ML VIAL IV PRN (11:15)
[2020-10-03] MEDS: DEXTROSE 5%-WATER 1,000 ML IV SCH (11:22)
[2020-10-03] MEDS: HEPARIN 5,000 UNIT VIAL SQ SCH ×2 (11:45→20:57)
[2020-10-03] MEDS: KETOROLAC OPTH 0.5% 5ML DROPS OD SCH ×2 (11:46→20:55)
[2020-10-03 12:29] VITALS: BP 130/62
[2020-10-03 13:01] LABS: INR 1.18 (0.85-1.15); PROTHROMBIN TIME 12.4 SEC (9.6-11.6)
[2020-10-03] MEDS ORDERED: LACTULOSE 20 GM/30 ML UDCUP PO PRN (13:15)
[2020-10-03 15:59] VITALS: BP 130/65
[2020-10-03] MEDS: LOVASTATIN 10 MG PO SCH (17:00)
[2020-10-03 20:00] VITALS: BP 140/72
[2020-10-03] MEDS: POTASSIUM CHLORIDE 20MEQ/100ML 100 ML IV PRN (20:58)
[2020-10-04] VITALS: BP 131/90
[2020-10-04] MEDS: ZOSYN 3.375GM+NS 50ML 50 ML IV SCH ×3 (01:01→17:09)
[2020-10-04] MEDS: POTASSIUM CHLORIDE 20MEQ/100ML 100 ML IV PRN (01:01)
[2020-10-04 04:06] VITALS: BP 127/68
[2020-10-04] MEDS: INSULIN HUMULIN R 100 UNIT/ML 3ML SQ SCH ×3 (06:45→16:47)
[2020-10-04 08:07] VITALS: BP 142/76
[2020-10-04] MEDS: FAMOTIDINE 20MG VIAL IV SCH (09:50)
[2020-10-04] MEDS: ASPIRIN 81MG CHEW TAB PO SCH (09:50)
[2020-10-04] MEDS: AMLODIPINE 5 MG TAB PO SCH (09:50)
[2020-10-04] MEDS: MULTIVITAMIN TABLET PO SCH (09:50)
[2020-10-04] MEDS: LOSARTAN 100 MG TABLET PO SCH (09:50)
[2020-10-04] MEDS: CALCIUM CARB 500MG PO SCH (09:50)
[2020-10-04] MEDS: HEPARIN 5,000 UNIT VIAL SQ SCH (09:54)
[2020-10-04] MEDS: DEXTROSE 5%-WATER 1,000 ML IV SCH ×2 (10:01→11:54)
[2020-10-04] MEDS: KETOROLAC OPTH 0.5% 5ML DROPS OD SCH (10:02)
[2020-10-04 11:38] LABS: CREATININE 0.8 mg/dL (0.5-1.5); POTASSIUM 3.8 mmol/L (3.5-5.1)
[2020-10-04] MEDS ORDERED: VANCOMYCIN 500MG+NS 100ML 100 ML IV SCH (12:00)
[2020-10-04 12:12] VITALS: BP 148/74
[2020-10-04] MEDS: LOVASTATIN 10 MG PO SCH (16:47)
[2020-10-04 17:16] VITALS: BP 132/63
[2020-10-04 20:00] VITALS: BP 111/56
== END 2020-10-04 21:00 | DRG 872 ==
LOC: EDH 23:21 → EDHIP 10-01 02:01 → 4CH 10-01 10:08
PROVIDERS: ADMIT Internal Medicine; ATTEND Internal Medicine
PROC: 02HV33Z Insertion of Infusion Device into Superior Vena Cava, Percutaneous Approach (ICD-10-PCS; principal; 2020-10-03)
PROC: B548ZZA Ultrasonography of Superior Vena Cava, Guidance (ICD-10-PCS; 2020-10-03)
DX: A41.9 Sepsis, unspecified organism (principal); N39.0 Urinary tract infection, site not specified; S32.029A Unspecified fracture of second lumbar vertebra, initial encounter for closed fracture; E87.0 Hyperosmolality and hypernatremia; L89.151 Pressure ulcer of sacral region, stage 1; E11.9 Type 2 diabetes mellitus without complications; E86.0 Dehydration; K56.41 Fecal impaction; D64.9 Anemia, unspecified; E78.5 Hyperlipidemia, unspecified; F03.90 Unspecified dementia, unspecified severity, without behavioral disturbance, psychotic disturbance, mood disturbance, and anxiety; I10 Essential (primary) hypertension; L89.612 Pressure ulcer of right heel, stage 2; M81.0 Age-related osteoporosis without current pathological fracture; Z20.828 Contact with and (suspected) exposure to other viral communicable diseases; K21.9 Gastro-esophageal reflux disease without esophagitis; E78.00 Pure hypercholesterolemia, unspecified; B96.89 Other specified bacterial agents as the cause of diseases classified elsewhere; X58.XXXA Exposure to other specified factors, initial encounter; Z74.01 Bed confinement status; Z79.82 Long term (current) use of aspirin; Z79.84 Long term (current) use of oral hypoglycemic drugs; Z79.899 Other long term (current) drug therapy; Y93.9 Activity, unspecified; Y92.89 Other specified places as the place of occurrence of the external cause; Y99.8 Other external cause status
CPT/HCPCS: 36415; 71045; 74018; 74176; 80048; 80053; 80202; 81001; 82150; 82550; 82948; 83036; 83605; 83690; 83735; 83874; 84100; 84145; 84484; 85025; 85027; 85610; 85730; 86900; 86901; 87040; 87077; 87088; 87186; 87426; 93005; C1894; G0378; J1644; J1815; J2543; J3370; J3480; J3490; J7070; J7120; U0003